=== PATIENT | female | born 2000 ===

== ENCOUNTER 2021-08-30 01:41 | Outpatient (CLI) ==
[~2021-08-30] VITALS: Ht 167.6 cm; Wt 70.4 kg
[2021-08-30 02:13] VITALS: BP 118/73
== END 2021-08-30 02:40 | disposition home or self-care (01) ==
LOC: M LDO 01:41
PROVIDERS: ATTEND Obstetrics & Gynecology
DX: O26.893 Other specified pregnancy related conditions, third trimester (principal); R10.2 Pelvic and perineal pain; Z3A.37 37 weeks gestation of pregnancy
CPT/HCPCS: 59025; G0378; G0463